=== PATIENT | female | born 1965 | race Caucasian/White ===

== ENCOUNTER → 2016-04-11 | Outpatient (CLI) | payer OTHER ==
[~2016-04-11] MED LIST: ALDACTONE50 MG PO; CYMBALTA30 MG PO; DIAMOX 250 MG250 MG PO; DILANTIN 100 M100 MG PO; DILANTIN100 MG PO; FLONASE 0.05% N16 GM; IMDUR ER TAB 3030 MG PO; LEVAQUIN500 MG PO; LIPITOR TAB 2020 MG PO; LOPRESSOR 25 MG25 MG PO; MEDROL DOSEPAK 24 MG PO; METOPROLOL TART25 MG PO; MONTELUKAST SOD10 MG PO; NAPROXEN SODIU550 MG PO; NEURONTIN 400400 MG PO; PREDNISONE 10 M10 MG PO; PRILOSEC OTC20 MG PO; PRILOSEC40 MG PO; PROVENTIL HFA 61 INH INH; SPIRIVA18 MCG INH; SYMBICORT 160-1 INHA INH; VENTOLIN HFA 66.7 GM INH; VENTOLIN/PROVE0.5 ML INH; VITAMIN D3 COM1 EACH PO; VITAMIN D350000 UNIT PO; ZESTRIL10 MG PO; ZITHROMAX250 MG PO
== END ==
LOC: HEART 5 03-30 09:00
DX: R07.89 Other chest pain (principal); R06.02 Shortness of breath; R60.9 Edema, unspecified
CPT/HCPCS: 78452; 93306; A9502; J2785

== ENCOUNTER 2020-05-29 14:06 | Inpatient (IN) | payer OTHER ==
[~2020-05-29] VITALS: Ht 165.1 cm; Wt 101.8 kg
[~2020-05-29 14:06] MED LIST changes: +BACITRACIN28.4 GM TP; +CHILDREN'S ASPI81 MG PO; +LASIX20 MG PO; +MACROBID 100 M100 MG PO; +MOBIC15 MG PO; +MUCINEX600 MG PO; +NAPROSYN500 MG PO; +NITROSTAT 0.40.4 MG SL; +NORCO 5-325 TA1 EACH PO; +PREDNISONE20 MG PO; +TESSALON PERLE100 MG PO; +VIBRAMYCIN100 MG PO; +Voltaren Gel 1% TOP
[2020-05-29 17:05] LABS: HEMOGLOBIN 13.8 gm/dl (12.3-15.3); RED BLOOD COUNT 4.26 M/UL (4.00-5.10); WHITE BLOOD COUNT 6.6 K/UL (4.5-11.0)
[2020-05-29 17:26] LABS: BUN/CREATININE RATIO 20 (0-10)
[2020-05-30 06:29] LABS: HEMOGLOBIN 13.3 gm/dl (12.3-15.3); RED BLOOD COUNT 4.06 M/UL (4.00-5.10); WHITE BLOOD COUNT 6.8 K/UL (4.5-11.0)
[2020-05-30 07:08] LABS: BUN/CREATININE RATIO 28 (0-10)
[2020-05-30] MEDS ORDERED: DIAMOX 250 MG250 MG PO (07:17)
[2020-05-30] MEDS ORDERED: NAPROXEN SODIU550 MG PO (07:18)
[2020-05-30] MEDS ORDERED: PROZAC10 MG PO (07:19)
[2020-05-30] MEDS ORDERED: VITAMIN D31250 MCG PO (07:19)
--- NOTE | 2020-05-30 16:00 | NUR ---
LAB CALLED WITH 3 CRITICAL PHENYTOIN VALUES COLLECTED AT 0300,0600 AND 1200. THOSE VALUES WERE 37.7,36.5,38.5 RESPECTIVELY. THE LABS HAD COME AT ONCE AND LATE DUE TO A BROKEN MACHINE IN THE LAB. THE VALUES WERE CALLED TO DR. PRYOR, WITH AN EXPLAINATION ABOUT THE BROKEN MACHINE IN THE LAB, AND A CLARIFICATION ABOUT WHEN THOSE LABS ARE TO BE DRAWN NEXT WAS CALLED BY THE NURSE BACK TO THE LAB.
--- NOTE | 2020-05-30 23:40 | NUR ---
pt called out at 2330 and said she was sweaty and her hair needed washed. I ask the pt if she wanted to get up and get a shower two different times and she refused.
[2020-06-01 06:14] LABS: HEMOGLOBIN 12.2 gm/dl (12.3-15.3); RED BLOOD COUNT 3.78 M/UL (4.00-5.10); WHITE BLOOD COUNT 5.8 K/UL (4.5-11.0)
[2020-06-01 06:43] LABS: BUN/CREATININE RATIO 20 (0-10)
--- NOTE | 2020-06-01 10:40 | NUR ---
RN NOTIFIED DR. REYES OF PATIENT'S DESIRE TO LEAVE THE HOSPITAL AGAINST MEDICAL ADVICE IN ORDER TO PAY HER BILLS. MD STATED THAT SHE WOULD SPEAK WITH THE PATIENT.
--- NOTE | 2020-06-01 12:53 | NUR ---
PATIENT STATED THAT SHE HAD DISCUSSED CONTINUING HER HOSPITAL STAY WITH HER BOYFRIEND AND HAS DECIDED TO STAY. RN CALLED DR. REYES AND NOTIFIED HER OF PATIENT'S DECISION. RN ALSO TOLD MD THAT PATIENT'S DILANTIN LEVEL IS 34.0 BUT HAS TRENDED DOWN FROM YESTERDAY MORNING'S LEVEL. NO NEW ORDERS NOTED. BED LOCKED AND LOW. CALL LIGHT WITHIN REACH. NO S/SX OF PAIN OR DISTRESS NOTED.
--- NOTE | 2020-06-02 14:06 | NUR ---
INSTRUCTED ON SAFETY IN THE MD [facility] OFFICE WILL CALL WITH APPOINTMENT VERBALIZED UNDERSTANDING. NADIR LEACH R.N.
== END 2020-06-02 16:05 | disposition home or self-care (01) | DRG 91 ==
LOC: ER1 14:06 → MED SURG 4 17:44 → CDU 17:44 → PROG CARE 20:46 → MED SURG 4 05-30 12:27
PROVIDERS: Physician Assistant; ADMIT Internal Medicine
DX: G92 Toxic encephalopathy (principal); J96.21 Acute and chronic respiratory failure with hypoxia; J96.22 Acute and chronic respiratory failure with hypercapnia; T42.0X5A Adverse effect of hydantoin derivatives, initial encounter; Z20.822 Contact with and (suspected) exposure to COVID-19; W18.30XA Fall on same level, unspecified, initial encounter; R27.0 Ataxia, unspecified; J44.9 Chronic obstructive pulmonary disease, unspecified; I11.0 Hypertensive heart disease with heart failure; I50.9 Heart failure, unspecified; E11.9 Type 2 diabetes mellitus without complications; E78.5 Hyperlipidemia, unspecified; G40.909 Epilepsy, unspecified, not intractable, without status epilepticus; F17.210 Nicotine dependence, cigarettes, uncomplicated; Z91.14 Patient's other noncompliance with medication regimen; Z99.81 Dependence on supplemental oxygen; Z98.51 Tubal ligation status; Z88.8 Allergy status to other drugs, medicaments and biological substances; Z88.1 Allergy status to other antibiotic agents; Z91.040 Latex allergy status; Z79.4 Long term (current) use of insulin; R29.6 Repeated falls
CPT/HCPCS: 36415; 36600; 70450; 71045; 73502; 73564; 80048; 80053; 80185; 80307; 81001; 82550; 82553; 82803; 82962; 83036; 83735; 83874; 84439; 84443; 84484; 85025; 85027; 93005; 94640; 94660; 94760; 97161; 99285; J1940; J7030; U0002

== ENCOUNTER 2020-06-19 14:56 | Inpatient (IN) | payer OTHER ==
[~2020-06-19] VITALS: Ht 165.1 cm; Wt 117.9 kg
[~2020-06-19 14:56] MED LIST changes: +PROZAC10 MG PO; +VITAMIN D31250 MCG PO
[2020-06-19 16:03] LABS: HEMOGLOBIN 13.9 gm/dl (12.3-15.3); RED BLOOD COUNT 4.18 M/UL (4.00-5.10); WHITE BLOOD COUNT 6.4 K/UL (4.5-11.0)
[2020-06-19 16:28] LABS: BUN/CREATININE RATIO 21 (0-10)
[2020-06-20 04:28] LABS: HEMOGLOBIN 13.6 gm/dl (12.3-15.3); RED BLOOD COUNT 4.15 M/UL (4.00-5.10); WHITE BLOOD COUNT 7.4 K/UL (4.5-11.0)
[2020-06-20 05:00] LABS: BUN/CREATININE RATIO 20 (0-10)
--- NOTE | 2020-06-20 19:04 | NUR ---
CALLED AND REPORTED A CRITICAL LAB VALUE FOR HER DILANTIN. THE LAB CALLED AND REPORTED THAT HER DILATIN LEVEL WAS 38.9. CALLED AND SPOKE WITH DR. REYES. DILATIN LEVEL WAS SIMILAR TO YESTERDAY. MD AWARE AND NO FURTHER ACTIONS ARE NEEDED AT THIS TIME. CONTINUING TO MONITOR.
--- NOTE | 2020-06-20 19:07 | NUR ---
LACTULOSE ENEMA GIVEN WITH 700ML OF WATER AT 1834. MONITORING PT FOR CHANGES. PT TOLERATED THE PROCEDURE WELL.
[2020-06-22 07:01] LABS: BUN/CREATININE RATIO 14 (0-10)
[2020-06-22] MEDS ORDERED: LEVOFLOXACIN250 MG PO (15:38)
== END 2020-06-22 16:39 | disposition home or self-care (01) | DRG 91 ==
LOC: ER1 14:56 → MED SURG 4 18:32 → CDU 18:32 → MED SURG 4 19:17
PROVIDERS: Physician Assistant; ADMIT Internal Medicine
DX: G92 Toxic encephalopathy (principal); J18.9 Pneumonia, unspecified organism; J96.11 Chronic respiratory failure with hypoxia; Z68.41 Body mass index [BMI] 40.0-44.9, adult; T42.0X5A Adverse effect of hydantoin derivatives, initial encounter; G40.909 Epilepsy, unspecified, not intractable, without status epilepticus; Z20.822 Contact with and (suspected) exposure to COVID-19; G47.33 Obstructive sleep apnea (adult) (pediatric); J44.9 Chronic obstructive pulmonary disease, unspecified; E66.9 Obesity, unspecified; F17.210 Nicotine dependence, cigarettes, uncomplicated; I11.0 Hypertensive heart disease with heart failure; I50.9 Heart failure, unspecified; Z88.5 Allergy status to narcotic agent; Z88.8 Allergy status to other drugs, medicaments and biological substances; Z88.1 Allergy status to other antibiotic agents; Z91.040 Latex allergy status; Z98.51 Tubal ligation status
CPT/HCPCS: 36415; 36600; 71045; 80048; 80053; 80185; 82140; 82550; 82553; 82803; 83874; 84484; 85025; 93005; 94640; 94664; 94760; 96374; 99285; J1650; J1956; J2270; J2543; U0002

== ENCOUNTER 2020-07-19 13:47 | Emergency (ER) | payer OTHER ==
[~2020-07-19 13:47] MED LIST changes: +LEVOFLOXACIN250 MG PO
[2020-07-19 14:47] LABS: HEMOGLOBIN 13.5 gm/dl (12.3-15.3); RED BLOOD COUNT 4.07 M/UL (4.00-5.10); WHITE BLOOD COUNT 9.5 K/UL (4.5-11.0)
[2020-07-19 16:43] LABS: BUN/CREATININE RATIO 22 (0-10)
[2020-07-20 10:49] LABS: ACINETOBACTER BAUMANNII Not Detected (Negative); CANDIDA ALBICANS Not Detected (Negative); ENTEROCOCCUS Not Detected (Negative); ESCHERICHIA COLI Not Detected (Negative); HAEMOPHILUS INFLUENZAE Not Detected (Negative); KLEBSIELLA OXYTOCA Not Detected (Negative); KLEBSIELLA PNEUMONIAE Not Detected (Negative); KPC-CARBAPENEM-RESISTANCE GENE Not Detected (Negative); PROTEUS Not Detected (Negative); PSEUDOMONAS AERUGINOSA Not Detected (Negative); SERRATIA MARCESANS Not Detected (Negative); STAPHYLOCOCCUS AUREUS Not Detected (Negative); STREP AGALACTIAE (GROUP B) Not Detected (Negative); STREP PYOGENES (GROUP A) Not Detected (Negative); STREPTOCOCCUS Not Detected (Negative); mecA (METHICILLIN RESIST GENE Not Detected (Negative); vanA/B (VANCOMYCIN RESIST GENE Not Detected (Negative)
[2020-07-20 10:50] LABS: CANDIDA KRUSEI Not Detected (Negative); CANDIDA TROPICALIS Not Detected (Negative)
[2020-07-20 12:04] LABS: STAPHYLOCOCCUS DETECTED (Negative)
== END 2020-07-19 17:49 | disposition short-term general hospital (02) ==
LOC: ER1 13:47
PROVIDERS: Emergency Medicine
DX: T20.20XA Burn of second degree of head, face, and neck, unspecified site, initial encounter (principal); I10 Essential (primary) hypertension; E11.9 Type 2 diabetes mellitus without complications; J44.9 Chronic obstructive pulmonary disease, unspecified; G40.909 Epilepsy, unspecified, not intractable, without status epilepticus; Z23 Encounter for immunization; X08.8XXA Exposure to other specified smoke, fire and flames, initial encounter
CPT/HCPCS: 36600; 70492; 71045; 80053; 82805; 85025; 87040; 87077; 87150; 87186; 90471; 90714; 94760; 99285; Q9963

== ENCOUNTER 2020-10-08 14:51 | Emergency (ER) | payer OTHER ==
[2020-10-08 16:16] LABS: HEMOGLOBIN 13.4 gm/dl (12.3-15.3); RED BLOOD COUNT 4.4 M/UL (4.00-5.10)
[2020-10-08 16:39] LABS: BUN/CREATININE RATIO 14 (0-10)
== END 2020-10-08 19:22 | disposition home or self-care (01) ==
LOC: ER1 14:51
PROVIDERS: Physician Assistant
DX: R10.32 Left lower quadrant pain (principal); I10 Essential (primary) hypertension; J44.9 Chronic obstructive pulmonary disease, unspecified; F17.200 Nicotine dependence, unspecified, uncomplicated; G40.909 Epilepsy, unspecified, not intractable, without status epilepticus; Z20.822 Contact with and (suspected) exposure to COVID-19
CPT/HCPCS: 36600; 71045; 80053; 82550; 82553; 82803; 83605; 83690; 83735; 83874; 83880; 84484; 85025; 94660; 94760; 96374; 96375; 99285; J2270; J2405; Q9967; U0002

== ENCOUNTER 2020-10-20 16:53 | Inpatient (IN) | payer OTHER ==
[~2020-10-20] VITALS: Ht 157.5 cm; Wt 118.8 kg
[~2020-10-20 16:53] MED LIST changes: +BENTYL 20MG TAB20 MG PO; -DILANTIN 100 M100 MG PO; -VENTOLIN HFA 66.7 GM INH; -VENTOLIN/PROVE0.5 ML INH
[2020-10-20 17:43] LABS: HEMOGLOBIN 14.6 gm/dl (12.3-15.3); RED BLOOD COUNT 4.49 M/UL (4.00-5.10); WHITE BLOOD COUNT 7.1 K/UL (4.5-11.0)
[2020-10-20 17:54] LABS: BUN/CREATININE RATIO 16 (0-10)
[2020-10-21 03:27] LABS: HEMOGLOBIN 13.6 gm/dl (12.3-15.3); RED BLOOD COUNT 4.2 M/UL (4.00-5.10); WHITE BLOOD COUNT 7.4 K/UL (4.5-11.0)
[2020-10-21 04:02] LABS: BUN/CREATININE RATIO 16 (0-10)
[2020-10-21] MEDS ORDERED: DILANTIN100 MG PO (11:00)
[2020-10-21] MEDS ORDERED: DILANTIN 100 M100 MG PO (23:45)
[2020-10-22 08:47] LABS: HEMOGLOBIN 13.8 gm/dl (12.3-15.3); RED BLOOD COUNT 4.27 M/UL (4.00-5.10)
[2020-10-22 09:27] LABS: BUN/CREATININE RATIO 12 (0-10)
[2020-10-22] MEDS ORDERED: NEURONTIN400 MG PO (18:19)
[2020-10-22] MEDS ORDERED: SENNA S TABLET1 EACH PO (18:19)
[2020-10-22] MEDS ORDERED: SALINE NOSE SPR45 ML (18:20)
[2020-10-22] MEDS ORDERED: ATROVENT HFA12.9 GM INH (18:21)
--- NOTE | 2020-10-22 22:10 | NUR ---
PATIENT STATED THAT SHE WANTED THE LOPEZ CATHETER OUT AND WAS PULLING ON IT. PATIENT STATED THAT SHE DID NOT WANT WOKEN UP AT ANYTIME DURING THE NIGHT. PATIENT REFUSED 0300 VITALS.
[2020-10-22] MEDS ORDERED: PROAIR HFA8.5 GM INH (23:41)
[2020-10-22] MEDS ORDERED: ALBUTEROL2.5 MG/3 M NEB (23:42)
[2020-10-23 09:07] LABS: HEMOGLOBIN 13.2 gm/dl (12.3-15.3); RED BLOOD COUNT 4.11 M/UL (4.00-5.10); WHITE BLOOD COUNT 6.8 K/UL (4.5-11.0)
[2020-10-23 09:32] LABS: BUN/CREATININE RATIO 9 (0-10)
== END 2020-10-23 16:50 | disposition home or self-care (01) | DRG 92 ==
LOC: ER1 16:53 → CDU 21:53 → PROG CARE 21:53 → M/S 10-23 11:02
PROVIDERS: Internal Medicine; Physician Assistant; ADMIT Internal Medicine
DX: G92 Toxic encephalopathy (principal); J96.11 Chronic respiratory failure with hypoxia; Z20.822 Contact with and (suspected) exposure to COVID-19; E87.1 Hypo-osmolality and hyponatremia; Z68.42 Body mass index [BMI] 45.0-49.9, adult; J44.9 Chronic obstructive pulmonary disease, unspecified; I11.0 Hypertensive heart disease with heart failure; I50.9 Heart failure, unspecified; E66.01 Morbid (severe) obesity due to excess calories; F17.200 Nicotine dependence, unspecified, uncomplicated; E78.5 Hyperlipidemia, unspecified; E83.42 Hypomagnesemia; R27.0 Ataxia, unspecified; T42.0X5A Adverse effect of hydantoin derivatives, initial encounter; Z91.14 Patient's other noncompliance with medication regimen; Z91.040 Latex allergy status; Z88.5 Allergy status to narcotic agent; Z88.8 Allergy status to other drugs, medicaments and biological substances; Z98.51 Tubal ligation status; Z90.89 Acquired absence of other organs; Z98.890 Other specified postprocedural states; Z79.899 Other long term (current) drug therapy
CPT/HCPCS: 36415; 36600; 51701; 70450; 71045; 72125; 80048; 80053; 80185; 80307; 81001; 82550; 82553; 82803; 83690; 83735; 83874; 83880; 84100; 84484; 84703; 85025; 85027; 86140; 93005; 94640; 94760; 97162; 97166; 99285; G0480; J2405; U0002

== ENCOUNTER 2020-11-19 14:34 | Emergency (ER) | payer OTHER ==
[~2020-11-19 14:34] MED LIST changes: +ALBUTEROL2.5 MG/3 M NEB; +ATROVENT HFA12.9 GM INH; +DILANTIN 100 M100 MG PO; +NEURONTIN400 MG PO; +PROAIR HFA8.5 GM INH; +SALINE NOSE SPR45 ML; +SENNA S TABLET1 EACH PO
[2020-11-19 15:17] LABS: HEMOGLOBIN 12.2 gm/dl (12.3-15.3); RED BLOOD COUNT 3.74 M/UL (4.00-5.10); WHITE BLOOD COUNT 6.6 K/UL (4.5-11.0)
[2020-11-19 16:00] LABS: BUN/CREATININE RATIO 14 (0-10)
[2020-11-19] MEDS ORDERED: ZOFRAN4 MG PO (16:40)
[2020-11-19] MEDS ORDERED: ZITHROMAX500 MG PO (16:40)
== END 2020-11-19 17:20 | disposition home or self-care (01) ==
LOC: ER1 14:34
PROVIDERS: Preventive Medicine Occupational Medicine
DX: R11.2 Nausea with vomiting, unspecified (principal); R05.9 Cough, unspecified; J44.9 Chronic obstructive pulmonary disease, unspecified; I25.10 Atherosclerotic heart disease of native coronary artery without angina pectoris; I10 Essential (primary) hypertension; F17.210 Nicotine dependence, cigarettes, uncomplicated
CPT/HCPCS: 70486; 71045; 80053; 80185; 80307; 82550; 82553; 83690; 83874; 84484; 85025; 85652; 86140; 93005; 96374; 96375; 99285; C9113; J2550; J7030

== ENCOUNTER 2021-06-02 17:44 | Inpatient (IN) | payer OTHER ==
[~2021-06-02] VITALS: Ht 154.9 cm; Wt 95.3 kg
[~2021-06-02 17:44] MED LIST changes: -PROAIR HFA8.5 GM INH; +ZITHROMAX500 MG PO; +ZOFRAN4 MG PO
[2021-06-02 18:25] LABS: RED BLOOD COUNT 3.76 M/UL (4.00-5.10); WHITE BLOOD COUNT 6.3 K/UL (4.5-11.0)
[2021-06-02 18:46] LABS: BUN/CREATININE RATIO 19 (0-10)
[2021-06-03] MEDS ORDERED: KEPPRA750 MG PO (01:30)
[2021-06-03] MEDS ORDERED: DILANTIN100 MG PO (01:32)
[2021-06-03] MEDS ORDERED: NAPROXEN SODIU550 MG PO (01:33)
[2021-06-03 06:17] LABS: RED BLOOD COUNT 3.77 M/UL (4.00-5.10); WHITE BLOOD COUNT 5.3 K/UL (4.5-11.0)
[2021-06-03 07:10] LABS: BUN/CREATININE RATIO 18 (0-10)
[2021-06-03] MEDS ORDERED: DILANTIN 100 M100 MG PO (16:09)
--- NOTE | 2021-06-03 20:37 | NUR ---
PATIENT LEFT VIA WHEELCHAIR AT 2034. SIG OTHER CAME TO PICK HER UP PER PT REQUEST. IV LINES OUT. O2 APPLIED AT 4L. PERSONAL BELONGINGS SENT WITH PATIENT.
[2021-06-03] MEDS ORDERED: PROAIR HFA8.5 GM INH (23:41)
== END 2021-06-03 20:35 | disposition home or self-care (01) | DRG 189 ==
LOC: ER1 17:44 → CDU 20:57 → PROG CARE 20:57
PROVIDERS: Family Medicine; ADMIT Internal Medicine
PROC: 5A09357 Assistance with Respiratory Ventilation, Less than 24 Consecutive Hours, Continuous Positive Airway Pressure (ICD-10-PCS; principal; 2021-06-02)
PROC: 5A09357 Assistance with Respiratory Ventilation, Less than 24 Consecutive Hours, Continuous Positive Airway Pressure (ICD-10-PCS; 2021-06-03)
DX: J96.21 Acute and chronic respiratory failure with hypoxia (principal); E66.2 Morbid (severe) obesity with alveolar hypoventilation; I50.32 Chronic diastolic (congestive) heart failure; G93.49 Other encephalopathy; G40.909 Epilepsy, unspecified, not intractable, without status epilepticus; I11.0 Hypertensive heart disease with heart failure; Z20.822 Contact with and (suspected) exposure to COVID-19; W01.0XXA Fall on same level from slipping, tripping and stumbling without subsequent striking against object, initial encounter; J44.9 Chronic obstructive pulmonary disease, unspecified; F41.9 Anxiety disorder, unspecified; F32.A Depression, unspecified; I95.2 Hypotension due to drugs; J30.9 Allergic rhinitis, unspecified; G62.9 Polyneuropathy, unspecified; I27.20 Pulmonary hypertension, unspecified; Z91.14 Patient's other noncompliance with medication regimen; Z98.51 Tubal ligation status; Z90.89 Acquired absence of other organs; Z98.890 Other specified postprocedural states; Z88.5 Allergy status to narcotic agent; Z88.8 Allergy status to other drugs, medicaments and biological substances; Z91.040 Latex allergy status; Z79.899 Other long term (current) drug therapy; Z68.39 Body mass index [BMI] 39.0-39.9, adult; Z87.891 Personal history of nicotine dependence
CPT/HCPCS: 36415; 36600; 51702; 70450; 71045; 72125; 73030; 73080; 80053; 80185; 80307; 81001; 82550; 82553; 82803; 83605; 84439; 84443; 84484; 85025; 85027; 93005; 94640; 94660; 94664; 94760; 97161; 99285; J1100; J1120; J1650; J1953; J1956; J2920; J7030

== ENCOUNTER 2021-07-03 18:41 | Emergency (ER) | payer OTHER ==
[~2021-07-03 18:41] MED LIST changes: +KEPPRA750 MG PO; +PROAIR HFA8.5 GM INH
[2021-07-03 20:10] LABS: HEMOGLOBIN 12.7 gm/dl (12.3-15.3); RED BLOOD COUNT 3.94 M/UL (4.00-5.10); WHITE BLOOD COUNT 5.5 K/UL (4.5-11.0)
[2021-07-03 20:33] LABS: BUN/CREATININE RATIO 23 (0-10)
[2021-07-04] MEDS ORDERED: PREDNISONE20 MG PO (00:27)
[2021-07-04] MEDS ORDERED: DILANTIN100 MG PO (00:27)
== END 2021-07-04 10:35 | disposition home or self-care (01) ==
LOC: ER1 18:41
PROVIDERS: Family Medicine
DX: S46.912A Strain of unspecified muscle, fascia and tendon at shoulder and upper arm level, left arm, initial encounter (principal); G40.909 Epilepsy, unspecified, not intractable, without status epilepticus; F17.200 Nicotine dependence, unspecified, uncomplicated; J96.12 Chronic respiratory failure with hypercapnia; J96.11 Chronic respiratory failure with hypoxia; E11.9 Type 2 diabetes mellitus without complications; I50.9 Heart failure, unspecified; J44.9 Chronic obstructive pulmonary disease, unspecified; Z88.5 Allergy status to narcotic agent; Z91.040 Latex allergy status; X58.XXXA Exposure to other specified factors, initial encounter
CPT/HCPCS: 36600; 71045; 73030; 80053; 82550; 82553; 82803; 83880; 84484; 85025; 93005; 96374; 99285; J2930